=== PATIENT | male | born 1985 | race Caucasian/White ===

== ENCOUNTER 2019-06-17 11:53 | Emergency (ER) | payer OTHER ==
[~2019-06-17] VITALS: Ht 182.9 cm; Wt 92.0 kg
--- NOTE | 2019-06-17 12:09 | NUR ---
PT C/O LLQ ABD PAIN STARTING ABOUT AN HOUR AGO. HX KIDNEY STONES, PAIN FEELS ABOUT THE SAME. CONNECTED TO MONITORING. CALL LIGHT IN REACH. PROVIDER AT BEDSIDE. AWAITING ORDERS AT THIS TIME.
[2019-06-17] MEDS ORDERED: ONDANSETRON 2MG/ML, 2ML ONE (12:23)
[2019-06-17] MEDS ORDERED: TAMSULOSIN 0.4 MG CAP.ER.24H ONE (12:23)
[2019-06-17] MEDS ORDERED: HYDROmorphone 1 MG/ML, 1ML INJ ONE ×2 (12:23→14:10)
[2019-06-17] MEDS ORDERED: KETOROLAC 30 MG/1 ML ONE (12:23)
[2019-06-17] MEDS ORDERED: TAMSULOSIN 0.4 MG CAP.ER.24H PO ONE (12:30)
[2019-06-17] MEDS ORDERED: HYDROmorphone 2 MG/ML, 1ML IVPush PRN (12:30)
[2019-06-17] MEDS ORDERED: SODIUM CHLORIDE FLUSH 10ML SYR IVF ONE (12:30)
[2019-06-17] MEDS ORDERED: KETOROLAC 30 MG/1 ML IVPush ONE (12:30)
[2019-06-17] MEDS ORDERED: ONDANSETRON 2MG/ML, 2ML IVPush ONE (12:30)
--- NOTE | 2019-06-17 12:31 | NUR ---
IV START. LABS DRAWN. 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 PT CONNECTED TO OXYGEN 2L VIA NC AND PULSE OX. US AT BEDSIDE.
[2019-06-17 12:39] LABS: BASOPHILS # (AUTO) 0.06 x10^3/uL (0-0.1); BASOPHILS % (AUTO) 1 % (0-1); EOSINOPHILS # (AUTO) 0.17 x10^3/uL (0-0.4); EOSINOPHILS % (AUTO) 2 % (1-7); LYMPHOCYTES # (AUTO) 2.73 x10^3/uL (1-3.4); LYMPHOCYTES % (AUTO) 39 % (22-44); MD NO; MEAN CORPUSCULAR HGB CONC 34.1 g/dL (33.2-36.2); MEAN CORPUSCULAR VOLUME 87.9 fL (81-97); MEAN PLATELET VOLUME 7.9 fL (7.4-10.4); MONOCYTES # (AUTO) 0.53 x10^3/uL (0.2-0.8); MONOCYTES % (AUTO) 8 % (2-9); NEUTROPHILS # (AUTO) 3.59 x10^3/uL (1.8-6.8); NEUTROPHILS % (AUTO) 51 % (42-75); PLATELET COUNT 339 x10^3/uL (130-400); RED BLOOD COUNT 5.38 x10^6/uL (4.38-5.82); RED CELL DISTRIBUTION WIDTH 12.8 % (9.4-14.8)
[2019-06-17 12:49] LABS: ALBUMIN 4.4 g/dL (3.4-5.0); ANION GAP 9 mmol/L (5-15); CALCIUM 9.6 mg/dL (8.5-10.1); CHLORIDE 105 mmol/L (98-107)
--- NOTE | 2019-06-17 12:49 | NUR ---
PT AWARE OF NEED FOR URINE SAMPLE. OK PER PROVIDER TO GIVE PT CUP OF WATER TO FACILITATE URINE. SPECIMEN CUP AND URINAL IN REACH OF PT.
[2019-06-17 12:53] LABS: ALANINE AMINOTRANSFERASE 46 U/L (12-78); ALKALINE PHOSPHATASE 128 U/L (45-117); BILIRUBIN,TOTAL 0.9 mg/dL (0.2-1.0); CREATININE 1.29 mg/dL (0.7-1.3); TOTAL PROTEIN 8.6 g/dL (6.4-8.2)
--- NOTE | 2019-06-17 13:09 | NUR ---
PT TRIED TO PROVIDE URINE SAMPLE WITHOUT SUCCESS. PROVIDER AWARE. OK TO GIVE PT MORE WATER.
--- NOTE | 2019-06-17 14:16 | NUR ---
PT MEDICATED FOR 10/10 PAIN. PT STILL UNABLE TO PROVIDE URINE SAMPLE. PROVIDER AWARE. NO FURTHER ORDERS AT THIS TIME.
--- NOTE | 2019-06-17 14:45 | NUR ---
URINE COLLECTED VIA STRAIGHT CATH AND TAKEN TO LAB.
[2019-06-17 15:18] LABS: CULTURE INDICATED? YES; MICROSCOPIC INDICATED
--- NOTE | 2019-06-17 15:24 | NUR ---
ALL RESULTS ARE BACK AT THIS TIME. CHART UP FOR RECHECK
[2019-06-17] MEDS ORDERED: HYDROcodone/APAP 10/325 MG TABLET ONE (15:57)
[2019-06-17] MEDS ORDERED: DEXTROSE 5% IVPush ONE (16:00)
[2019-06-17] MEDS ORDERED: HYDROcodone/APAP 10/325 MG TABLET PO ONE (16:00)
[2019-06-17] MEDS ORDERED: LIDOCAINE IVPush ONE (16:00)
--- NOTE | 2019-06-17 16:13 | NUR ---
RECEIVED MED FROM PHARMACY AND STARTED PER JUL. PT PLACED ON STAFF TOXICOLOGIST AND WILL MONITOR FOR 30 MIN AFTER, PER MD. PT RESTING ON RNEY. LEIGH. PT WILL STAY AT LOCAL [facility], SINCE HE HAS RECEIVED PAIN MEDS.
[2019-06-17 16:44] VITALS: BP 120/72
[2019-06-17] MEDS ORDERED: ONDANSETRON ODT 4 MG ONE (17:07)
--- NOTE | 2019-06-17 17:08 | NUR ---
MEDS ADMIN PER JUL. PT 1 EPISODE EMESIS. PT DRESSED AND WILL CALL RIDE [facility] FOR RIDE TO [facility].
[2019-06-17] MEDS ORDERED: ONDANSETRON ODT 4 MG PO ONE (17:30)
== END 2019-06-17 17:11 | disposition home or self-care (01) ==
LOC: ED 12:57
DX: N23 Unspecified renal colic (principal); Z90.49 Acquired absence of other specified parts of digestive tract
CPT/HCPCS: 36415; 76770; 80053; 81001; 85025; 87086; 96374; 96375; 99284; J1170; J1885; J2405; Q0162